=== PATIENT | male | born 1965 | race Caucasian/White ===

== ENCOUNTER 2017-01-28 17:09 | Emergency (ER) | payer OTHER ==
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
[~2017-01-28 17:09] MED LIST: ACETAMINOPHEN PO; ALBUTEROL17 GM INH; ASPIRIN EC81 M1 PO; ASPIRIN81 M1 PO; AZITHROMYCIN1 GM PO; BACTRIM DS TABL1 TA1 PO; BACTRIM DS TABL1 TAB PO; CORTIZONE-528 GM TOP; FLONASE16 GM; HCTZ PO; HYDROCHLOROTHIA25 MG PO; LORTAB 5/500 TA1 TA1 PO; MUCINEX D ER T1 EAC1 PO; NAPROXEN PO; NO MEDICATIONS; NORVASC PO; PEN-VEE K PO; PERCOCET5/325 PO; PREDNISONE PO; PRILOSEC20 M1 PO; PROMETHAZINE-D240 ML PO; REGLAN PO; ROBITUSSIN COUG1 CAP PO; TACLONEX TOP; TENORMIN50 MG PO; TYLENOL #3 PO; ULTRAM PO; VICODIN PO; ZITHROMAX PO; ZYRTEC-D T1 TAB.SR . PO
== END 2017-01-28 19:28 | disposition home or self-care (01) ==
LOC: SED 17:09
DX: S16.1XXA Strain of muscle, fascia and tendon at neck level, initial encounter (principal); F19.10 Other psychoactive substance abuse, uncomplicated; Z79.899 Other long term (current) drug therapy; I25.2 Old myocardial infarction; I10 Essential (primary) hypertension; V49.40XA Driver injured in collision with unspecified motor vehicles in traffic accident, initial encounter
CPT/HCPCS: 72040; 72125; 99284

== ENCOUNTER 2017-06-29 11:51 | Emergency (ER) | payer OTHER ==
--- NOTE | ~2017-06-29 | CR63 ---
[facility] A Service [facility] RADIOLOGY TEXT RESULTS PATIENT: KENDALL CEDILLO LOCATION: SED : 65 UNIT #: [id number] AGE: [address]: MILVIA HERNANDEZ PA-C SEX: M ORDER DR: [id number] [place] [id number] E MR#: [id number] Acc #: [id number] NAME: KENDALL CEDILLO : 1965 SEX: M STUDY DATE/TIME: 06/29/2017 UNIT: SED ROOM: STUDY DESCRIPTION: CR Chest 2 View Attending Physician: Milvia Hernandez Pa-C Ordering Physician: Milvia Hernandez Pa-C MEDICAL IMAGING REPORT This report is preliminary unless electronic signature is present. EXAM Chest 2 views 06/29/2017 1303 hours HISTORY 51-year-old man with 3-month history of chronic cough, worsening over the last 3 days, possible flu. Pain in back radiating to lungs today. COMPARISON 04/01/2016. FINDINGS Upright PA and lateral views of the chest demonstrate normal heart size. The aorta is mildly tortuous but unchanged. There is a moderate hiatal hernia which appears stable. Lungs are clear. There are no effusions. IMPRESSION The lungs are clear and there are no effusions. There is a moderate hiatal hernia without change. Dictated by... Jennifer Santiago M.D. THIS IS AN ELECTRONICALLY VERIFIED REPORT Jennifer Santiago M.D. at 06/30/2017 9:27 AM JOSÉ MANUEL/asmita TD: 06/29/2017 20:06 JOB #: [id number] MEDICAL IMAGING REPORT [facility] A Service [facility] RADIOLOGY TEXT RESULTS PATIENT: KENDALL CEDILLO LOCATION: SED : 65 UNIT #: [id number] AGE: [address]: MILVIA HERNANDEZ PA-C SEX: M ORDER DR: Page 1 of 1
--- NOTE | ~2017-06-29 | EKG ---
PATIENT: KENDALL CEDILLO UNIT #: [id number] Ventricular Rate: 72 BPM Atrial Rate: 72 BPM P-R Interval: 162 ms QRS Duration: 80 ms Q-T Interval: 372 ms QTC Calculation(Bezet): 407 ms P [place]: 43 degrees Calculated R [place]: 12 degrees Calculated T [place]: 31 degrees Diagnosis Line: Normal sinus rhythm Poor R wave progression Diagnosis Line: questionable lead position or body habitus Diagnosis Line: Cannot rule out Inferior infarct , age Diagnosis Line: undetermined Diagnosis Line: Abnormal ECG Diagnosis Line: When compared with ECG of 01-OCT-2014 13:16, Diagnosis Line: Borderline criteria for Inferior infarct are now Diagnosis Line: Present Diagnosis Line: Nonspecific T wave abnormality has replaced Diagnosis Line: inverted T waves in Inferior leads Diagnosis Line: Confirmed by CESAR DAVE MD ([id number]) on 07/02/2017 Diagnosis Line: 7:00:33 PM INTERPRETING MD: JOLIE WOODRUFF
[2017-06-29] MEDS ORDERED: ALBUTEROL NEB (12:28)
[2017-06-29] MEDS ORDERED: INHALER (12:28)
[2017-06-29 13:14] LABS: INFLUENZA A NEG (NEG); INFLUENZA B NEG (NEG)
[2017-06-29 13:44] LABS: BASOPHIL% 0.9 % (0-2.5); EOSINOPHIL# 0.1 X10e3 (0-0.7); EOSINOPHIL% 1.8 % (0.0-7.0); HEMATOCRIT 43.7 % (38.0-50.0); HEMOGLOBIN 14.1 gm/dL (13.0-16.0); LYMPHOCYTE# 1.9 X10e3 (1.0-3.5); LYMPHOCYTE% 39.2 % (17.0-45.0); MEAN CELL VOLUME 72.2 FL (83-96); MEAN CORPUSCULAR HEMOGLOBIN 23.3 PG (28-34); MEAN CORPUSCULAR HGB CONC 32.2 g/dL (30-36); MEAN PLATELET VOLUME 8.3 FL (6.5-11.5); MONOCYTE# 0.5 X10e3 (0-1.0); MONOCYTE% 11.3 % (3.0-12.0); NEUTROPHIL# 2.3 X10e3 (1.5-7.1); NEUTROPHIL% 46.8 % (40-75); PLATELET COUNT 188 X10e3 (140-420); RED BLOOD COUNT 6.05 X10e (3.90-5.60); RED CELL DISTRIBUTION WIDTH 17.2 % (11.0-15.5); WHITE BLOOD COUNT 4.8 X10e3 (4.0-10.5)
[2017-06-29 13:50] LABS: DIFF IND NO
[2017-06-29 13:51] LABS: POC - CKMB 1.8 ng/mL (0.0-7.9)
[2017-06-29 13:52] LABS: POC - TROPONIN <0.05 ng/mL (<=0.05)
[2017-06-29 14:04] LABS: ALBUMIN SERUM 4.1 g/dL (3.5-5.0); ALKALINE PHOSPHATASE 72 U/L (32-92); ALT (SGPT) 27 U/L (10-40); AST (SGOT) 26 U/L (10-42); BILIRUBIN,TOTAL 0.6 mg/dL (0.2-2.0); BLOOD UREA NITROGEN 16 mg/dL (9-23); BUN/CREATININE RATIO 14.54; CALCIUM SERUM 8.9 mg/dL (8.4-10.2); CARBON DIOXIDE 26 mmol/L (22-31); CHLORIDE 106 mmol/L (100-111); CREATININE SERUM 1.1 mg/dL (0.6-1.4); GLOM FILT RATE Estimated 77.3 mL/min (>60); GLUCOSE FASTING 96 mg/dL (70-110); LIPASE 35 U/L (22-51); POTASSIUM 4.1 mmol/L (3.5-5.1); PROTEIN TOTAL SERUM 7.3 g/dL (6.0-8.3); SODIUM 139 mmol/L (135-145)
[2017-06-29 14:28] LABS: ACETAMINOPHEN <10 ug/mL
== END 2017-06-29 16:27 | disposition home or self-care (01) ==
LOC: SED 11:51
PROVIDERS: Physician Assistant
DX: J20.9 Acute bronchitis, unspecified (principal); I11.9 Hypertensive heart disease without heart failure; Z87.891 Personal history of nicotine dependence; Z98.890 Other specified postprocedural states
CPT/HCPCS: 71020; 80053; 82553; 83605; 83690; 83874; 84484; 85025; 87804; 93005; 99283; G0480